=== PATIENT | female | born 1975 | race Asian ===

== ENCOUNTER 2017-06-12 17:56 | Emergency (ER) | payer MEDICAID ==
[~2017-06-12] VITALS: Ht 152.4 cm; Wt 72.0 kg
[2017-06-12 18:19] VITALS: BP 125/76
[2017-06-12] MEDS ORDERED: NO HOME MEDS (18:23)
== END 2017-06-12 19:20 | disposition home or self-care (01) ==
LOC: ER 17:57
DX: J02.9 Acute pharyngitis, unspecified (principal)
CPT/HCPCS: 99281